=== PATIENT | female | born 1990 | race Caucasian/White ===

== ENCOUNTER 2018-01-03 13:56 | Emergency (ER) | payer BC, OTHER ==
[2018-01-03 14:31] VITALS: RESP 18; O2SAT 100
[2018-01-03 15:57] LABS: BASO # 0.1 K/uL (0.0-0.2); BASO % 0.7 % (0.0-2.0); EOS # 0.2 K/uL (0.0-0.7); EOS % 1.9 % (0.0-4.0); HEMOGLOBIN 11.8 g/dL (11.0-16.0); LYMPH # 2.2 K/uL (1.0-4.3); LYMPH % 23.6 % (20.0-40.0); MEAN CELL VOLUME 83.7 fL (81.0-99.0); MEAN CORPUSCULAR HEMOGLOBIN 27.2 pg (27.0-31.0); MEAN CORPUSCULAR HGB CONC 32.5 g/dL (33.0-37.0); MEAN PLATELET VOLUME 8.2 fL (7.2-11.7); MONO # 0.7 K/uL (0.0-0.8); MONO % 7.5 % (0.0-10.0); NEUT # 6.1 K/uL (1.8-7.0); NEUT % 66.3 % (50.0-75.0); RBC 4.34 Mil/uL (3.80-5.20); WHITE BLOOD COUNT 9.2 K/uL (4.8-10.8)
[2018-01-03 16:08] LABS: SQUAMOUS EPITHIAL 10 /hpf (0-5); URINE BACTERIA FEW (<OCC); URINE BILIRUBIN NEGATIVE (NEGATIVE); URINE BLOOD NEGATIVE (NEGATIVE); URINE CLARITY Hazy (Clear); URINE COLOR Yellow (YELLOW); URINE GLUCOSE (UA) NORMAL (Normal); URINE LEUKOCYTE ESTERASE 2+ Leu/uL (Negative); URINE PROTEIN NEGATIVE (NEGATIVE); URINE UROBILINOGEN NORMAL mg/dL (0.2-1.0)
[2018-01-03 16:26] LABS: ALB/GLOB RATIO 1.1 (1.0-2.1); ALBUMIN 4.1 g/dL (3.5-5.0); ALT/SGPT 7 U/L (9-52); AST/SGOT 21 U/L (14-36); BLOOD UREA NITROGEN 9 mg/dL (7-17); CALCIUM 9.1 mg/dl (8.6-10.4); GFR AFRICAN-AMERICAN > 60; GFR NON-AFRICAN AMERICAN > 60; LIPASE 118 U/L (23-300)
[2018-01-03] MEDS ORDERED: Iodixanol 320 MG/ML 100 ML BOTTLE IV ONE (17:08)
[2018-01-03 17:24] VITALS: BP 124/83; PULSE 75; TEMP 98.6
--- NOTE | 2018-01-03 17:43 | C.PDOC ---
History Of Present Illness 27 year old female presents to the ED complaining of left lower quadrant abdominal pain for the past 4 days. Associated with constipation. Patient went to see her PMD who sent her to the ER for evaluation. Denies any nausea, vomiting, fever, or dysuria. Denies prior history of similar pain. Patient has had no prior abdominal surgeries. Time Seen by Provider: 01/03/18 15:09 Chief Complaint (Nursing): Abdominal Pain History Per: Patient History/Exam Limitations: no limitations Onset/Duration Of Symptoms: Days (x4) Current Symptoms Are (Timing): Still Present Past Medical History Reviewed: Historical Data, Nursing Documentation, Vital Signs Vital Signs: Last Vital Signs Temp 98.6 F 01/03/18 17:23 Pulse 75 01/03/18 17:23 Resp 18 01/03/18 17:23 BP 124/83 01/03/18 17:23 Pulse Ox 100 01/03/18 17:56 - Medical History PMH: Asthma, HTN Surgical History: No Surg Hx Family History: States: No Known Family Hx - Social History Hx Tobacco Use: No Hx Alcohol Use: Yes Hx Substance Use: No - Immunization History Hx Tetanus Toxoid Vaccination: No Hx Influenza Vaccination: No Hx Pneumococcal Vaccination: No Review Of Systems Except As Marked, All Systems Reviewed And Found Negative. Gastrointestinal: Positive for: Abdominal Pain, Constipation Physical Exam - Physical Exam Appears: No Acute Distress, Other (Appears mildly uncomfortable) Skin: Normal Color, Warm, Dry Head: Atraumatic, Normacephalic Eye(s): bilateral: Normal Inspection, PERRL, EOMI Nose: Normal Oral Mucosa: Moist Neck: Normal ROM, Supple Chest: Symmetrical Cardiovascular: Rhythm Regular, No Murmur Respiratory: Normal Breath Sounds, No Rales, No Rhonchi, No Wheezing Gastrointestinal/Abdominal: Soft, Tenderness (mildly TTP at LLQ and suprapubic area), No Guarding, No Rebound, Other (Negative McBurneys) Back: Normal Inspection, No CVA Tenderness, No Vertebral Tenderness Extremity: Bilateral: Atraumatic, Normal Color And Temperature, Normal ROM Neurological/Psych: Oriented x3, Normal Speech ED Course And Treatment - Laboratory Results Result Diagrams: 01/03/18 15:50 01/03/18 15:50 O2 Sat by Pulse Oximetry: 100 (RA) Pulse Ox Interpretation: Normal - CT Scan/US CT abdomen/pelvis Other Rad Studies (CT/US): Read By Radiologist, Radiology Report Reviewed CT/US Interpretation: Accession No. : [id number]. Patient Name / ID : ONEIDA RICE / [id number]. Exam Date : 01/03/2018 17:23:25 ( Approved ). Study Comment : Sex / Age : F / 27Y. Creator : Lawson James MD. Dictator : Lawson James MD. Field Operations Supervisor : Agricultural Engineering Technician : Lawson James MD. Approver2 : Report Date : 01/03/2018 17:45:46. My Comment : . PROCEDURE: CT Abdomen and Pelvis with contrast. HISTORY: LLQ PAIN R/O DIVERTICULITIS. COMPARISON: None. TECHNIQUE: Contrast dose: 100 mL Visipaque 320. Radiation dose: Total exam DLP = 293.49 mGy-cm. This CT exam was performed using one or more of the following dose reduction techniques: Automated exposure control, adjustment of the mA and/or kV according to patient size, and/or use of iterative reconstruction technique. FINDINGS: LOWER THORAX : Unremarkable. LIVER: Unremarkable. No gross lesion or ductal dilatation. GALLBLADDER AND BILE DUCTS: Unremarkable. PANCREAS: Unremarkable. No gross lesion or ductal dilatation. SPLEEN: Unremarkable. ADRENALS: Unremarkable. No mass. KIDNEYS AND URETERS: Unremarkable. No hydronephrosis. No solid mass. VASCULATURE: Unremarkable. No aortic aneurysm. BOWEL: Unremarkable. No obstruction. No gross mural thickening. APPENDIX: Normal appendix. PERITONEUM : Unremarkable. No free fluid. No free air. LYMPH NODES: Unremarkable. No enlarged lymph nodes. BLADDER: Unremarkable. REPRODUCTIVE: Unremarkable uterus. BONES: No acute fracture. OTHER FINDINGS: None. IMPRESSION: Normal abdominal/ pelvic CT examination. No evidence of diverticulitis. Progress Note: Blood work, urine, and CT abd/pelvis ordered and reviewed. Administered IV fluids and Toradol. Disposition Counseled Patient/Family Regarding: Studies Performed, Diagnosis, Need For Followup, Rx Given - Disposition Referrals: Cale Walsh MD [Staff Provider] - Disposition: HOME/ ROUTINE Disposition Time: 18:10 Condition: STABLE Additional Instructions: FOLLOW UP WITH YOUR DOCTOR IN 1-2 DAYS USE MEDICATIONS DIRECTED DRINK PLENTY OF FLUIDS AND INCREASE FIBER INTAKE RETURN TO ER IF SYMPTOMS WORSEN Prescriptions: Ciprofloxacin [Cipro] 1 tab PO BID #14 tab Docusate [Colace] 100 mg PO DAILY #30 cap Instructions: Constipation, Adult (DC), Urinary Tract Infection, Adult (DC) Forms: [employer] (Pashto) Print Language: MOSOTHO - Clinical Impression Clinical Impression: UTI (urinary tract infection), Constipation - Scribe Statement The provider has reviewed the documentation as recorded by the Scribe (Poppy Sharp) Provider Attestation: All medical record entries made by the Scribe were at my direction and personally dictated by me. I have reviewed the chart and agree that the record accurately reflects my personal performance of the history, physical exam, medical decision making, and the department course for this patient. I have also personally directed, reviewed, and agree with the discharge instructions and disposition.
--- NOTE | 2018-01-03 17:47 | CT ---
PROCEDURE: CT Abdomen and Pelvis with contrast HISTORY: LLQ PAIN R/O DIVERTICULITIS COMPARISON: None. TECHNIQUE: Contrast dose: 100 mL Visipaque 320 Radiation dose: Total exam DLP = 293.49 mGy-cm. This CT exam was performed using one or more of the following dose reduction techniques: Automated exposure control, adjustment of the mA and/or kV according to patient size, and/or use of iterative reconstruction technique. FINDINGS: LOWER THORAX: Unremarkable. LIVER: Unremarkable. No gross lesion or ductal dilatation. GALLBLADDER AND BILE DUCTS: Unremarkable. PANCREAS: Unremarkable. No gross lesion or ductal dilatation. SPLEEN: Unremarkable. ADRENALS: Unremarkable. No mass. KIDNEYS AND URETERS: Unremarkable. No hydronephrosis. No solid mass. VASCULATURE: Unremarkable. No aortic aneurysm. BOWEL: Unremarkable. No obstruction. No gross mural thickening. APPENDIX: Normal appendix. PERITONEUM: Unremarkable. No free fluid. No free air. LYMPH NODES: Unremarkable. No enlarged lymph nodes. BLADDER: Unremarkable. REPRODUCTIVE: Unremarkable uterus BONES: No acute fracture. OTHER FINDINGS: None. IMPRESSION: Normal abdominal/ pelvic CT examination. No evidence of diverticulitis.
== END 2018-01-03 18:14 | disposition home or self-care (01) ==
LOC: C.ER 13:56
DX: N39.0 Urinary tract infection, site not specified (principal); K59.00 Constipation, unspecified
CPT/HCPCS: 74177; 80053; 81001; 83690; 84703; 85025; 87086; 96374; 99283; J1885; Q9967

== ENCOUNTER 2018-04-24 09:05 | Emergency (ER) | payer BC ==
[2018-04-24 09:28] VITALS: BMI 24.1
--- NOTE | 2018-04-24 09:52 | C.PDOC ---
History Of Present Illness 28 year old with past medical history of asthma presents to the ER for dysuria and left sided back pain. Patient states the back pain started Saturday evening and she started having increased urinary frequency. She states she saw her PMD on Saturday and was started on Ciprofloxacin 500mg bid for 7 days and was also given a shot of an antibiotic for which she does not recall the name. She states her back pain is constant 7/10 pain with dysura, increased frequency , nausea, and loss of appetite. She states she has not taken anything for the pain at home. Patient denies vomiting, fever, chills, hematuria, abdominal or pelvic. pain. Chief Complaint (Nursing): Female Genitourinary Past Medical History Vital Signs: Last Vital Signs Temp 98.1 F 04/24/18 09:29 Pulse 84 04/24/18 09:29 Resp 18 04/24/18 09:29 BP 138/91 H 04/24/18 09:29 Pulse Ox 100 04/24/18 11:34 - Medical History PMH: Asthma, HTN Family History: States: Unknown Family Hx - Social History Hx Tobacco Use: No Hx Alcohol Use: Yes Hx Substance Use: No - Immunization History Hx Tetanus Toxoid Vaccination: No Hx Influenza Vaccination: No Hx Pneumococcal Vaccination: No Review Of Systems Constitutional: Negative for: Fever, Chills Cardiovascular: Negative for: Chest Pain, Palpitations Respiratory: Negative for: Shortness of Breath Gastrointestinal: Positive for: Nausea. Negative for: Vomiting, Abdominal Pain , Diarrhea, Constipation Genitourinary: Positive for: Dysuria, Frequency. Negative for: Hematuria, Vaginal Discharge, Vaginal Bleeding, Pelvic Pain Musculoskeletal: Positive for: Back Pain Neurological: Negative for: Weakness, Numbness Physical Exam - Physical Exam Appears: Well, Non-toxic Skin: Normal Color Head: Atraumatic, Normacephalic Eye(s): bilateral: Normal Inspection, PERRL, EOMI Oral Mucosa: Moist Cardiovascular: Rhythm Regular Respiratory: Normal Breath Sounds Gastrointestinal/Abdominal: Normal Exam, Soft, No Tenderness, No Distention, No Guarding Back: CVA Tenderness (left CVA tenderness ) ED Course And Treatment - Laboratory Results Urine POC: Negative O2 Sat by Pulse Oximetry: 100 Medical Decision Making Medical Decision Making: UA: +leukocyte esterase and WBC CT abdomen/pelvis: Unremarkable examination. Nonspecific trace fluid in cul-de- sac. No evidence of urinary calculus or urinary tract obstruction. Disposition Discussed With DrHermelindo: Mati Rodríguez Doctor Will See Patient In The: ED - Disposition Referrals: Tri Guerrero [facility] [Advanced Practice Nurse] - Disposition Time: 11:35 Condition: GOOD Additional Instructions: Patient to follow up with PMD in 1 week. If symptoms worsen please return to the ER. Prescriptions: Cephalexin [cephalexin] 500 mg PO Q12H 7 Days #14 cap Instructions: Urinary Tract Infections in Adults Forms: [facility] (Danish), General Discharge Instructions - Clinical Impression Clinical Impression: Urinary tract infection - PA / FIELD TECH / Resident Statement MD/DO has reviewed & agrees with the documentation as recorded. MD/DO has examined the patient and agrees with the treatment plan.
[2018-04-24 09:55] LABS: SQUAMOUS EPITHIAL 6 /hpf (0-5); URINE BACTERIA MANY (<OCC); URINE BILIRUBIN NEGATIVE (NEGATIVE); URINE BLOOD NEGATIVE (NEGATIVE); URINE CLARITY Hazy (Clear); URINE COLOR Red (YELLOW); URINE GLUCOSE (UA) NORMAL (Normal); URINE LEUKOCYTE ESTERASE 3+ Leu/uL (Negative); URINE PROTEIN NEGATIVE (NEGATIVE); URINE UROBILINOGEN NORMAL mg/dL (0.2-1.0)
--- NOTE | 2018-04-24 11:24 | CT ---
Date of service: 04/24/2018 PROCEDURE: CT Abdomen and Pelvis without intravenous contrast HISTORY: Left CVA tenderness and dysuria COMPARISON: TECHNIQUE: Without contrast.. Contrast dose: 0 Radiation dose: Total exam DLP = 337.66 mGy-cm. This CT exam was performed using one or more of the following dose reduction techniques: Automated exposure control, adjustment of the mA and/or kV according to patient size, and/or use of iterative reconstruction technique. FINDINGS: LOWER THORAX: Unremarkable. LIVER: Unremarkable. No gross lesion or ductal dilatation. GALLBLADDER AND BILE DUCTS: Unremarkable. PANCREAS: Unremarkable. No gross lesion or ductal dilatation. SPLEEN: Unremarkable. ADRENALS: Unremarkable. No mass. KIDNEYS AND URETERS: Unremarkable. No hydronephrosis. No solid mass. No renal or ureteral calculus. VASCULATURE: Unremarkable. No aortic aneurysm. BOWEL: Unremarkable. No obstruction. No gross mural thickening. APPENDIX: Unremarkable. Normal appendix. PERITONEUM: Minimal fluid in cul-de-sac, nonspecific. No generalized ascites or pneumoperitoneum. LYMPH NODES: Unremarkable. No enlarged lymph nodes. BLADDER: Unremarkable. REPRODUCTIVE: Normal uterus BONES: No acute fracture. OTHER FINDINGS: None. IMPRESSION: Unremarkable examination. Nonspecific trace fluid in cul-de-sac. No evidence of urinary calculus or urinary tract obstruction.
[2018-04-24 11:45] VITALS: TEMP 97.4
[2018-04-24 11:47] VITALS: BP 129/85; PULSE 81; RESP 16; O2SAT 98
== END 2018-04-24 11:45 | disposition home or self-care (01) ==
LOC: C.ER 09:05
DX: N39.0 Urinary tract infection, site not specified (principal); I10 Essential (primary) hypertension